=== PATIENT | male | born 1950 | race Two or more races ===

== ENCOUNTER 2017-11-29 18:10 | Inpatient (IN) | payer MEDICARE, BC ==
[~2017-11-29] VITALS: Ht 162.6 cm; Wt 77.2 kg
[2017-11-29] MEDS ORDERED: IBUPROFEN 200 MG TABLET PO ONE (19:00)
[2017-11-29 19:16] LABS: MEAN CORPUSCULAR HEMOGLOBIN 30.6 pg (27.5-34.5); MEAN CORPUSCULAR HGB CONC 33.4 g/dL (33.2-36.2); MEAN CORPUSCULAR VOLUME 91.4 fL (81-97); MEAN PLATELET VOLUME 7.7 fL (7.4-10.4); PLATELET COUNT 319 x10^3/uL (130-400); RED BLOOD COUNT 4.42 x10^6/uL (4.38-5.82); RED CELL DISTRIBUTION WIDTH 14.2 % (9.4-14.8)
[2017-11-29 19:23] LABS: ALBUMIN 3.5 g/dL (3.4-5.0); ANION GAP 9 mmol/L (5-15); CALCIUM 9.2 mg/dL (8.5-10.1); CHLORIDE 103 mmol/L (98-107)
[2017-11-29 19:24] LABS: RAPID INFLUENZA A Negative (Negative); RAPID INFLUENZA B Negative (Negative)
[2017-11-29 20:00] LABS: MD YES
[2017-11-29 20:02] LABS: BAND#(MANUAL) 0.55 x10^3/uL; BANDS%(MANUAL) 3 % (0-7); LYMPH#(MANUAL) 2.39 x10^3/uL (1-3.4); LYMPHS% (MANUAL) 13 % (22-44); MONOS#(MANUAL) 1.47 x10^3/uL (0.3-2.7); MONOS% (MANUAL) 8 % (2-9); SEG#(MANUAL) 13.98 x10^3/uL (1.8-6.8); SEGS% (MANUAL) 76 % (42-75)
[2017-11-29 20:03] LABS: <PLATELET ESTIMATE> ADEQUATE; <RBC MORPHOLOGY> NORMAL
[2017-11-29 20:04] LABS: <PLT MORPHOLOGY> NORMAL PLT MORPH
[2017-11-29] MEDS ORDERED: IBUPROFEN 200 MG TABLET ONE (21:20)
[2017-11-29 21:43] LABS: MICROSCOPIC AUTO
[2017-11-29 21:45] LABS: CULTURE INDICATED? NO
[2017-11-29] MEDS ORDERED: SODIUM CHLORIDE 0.9% 1,000 ML IV ONE (21:53)
[2017-11-29] MEDS ORDERED: CEFTRIAXONE PMX 1GM/50ML 50 ML IV ONE (22:00)
[2017-11-29] MEDS ORDERED: SODIUM CHLORIDE 0.9% 1,000ML IVBOLUS ONE (22:00)
[2017-11-29] MEDS ORDERED: AZITHROMYCIN 500 MG in SODIUM CHLORIDE 0.9% 250 ML IV ONE (22:00)
[2017-11-29] MEDS ORDERED: SODIUM CHLORIDE FLUSH 10ML SYR IVF ONE (22:00)
[2017-11-29] MEDS ORDERED: CEFTRIAXONE PMX 1GM/50ML 50 ML ONE (23:03)
[2017-11-29] MEDS ORDERED: METF500T4 PO (23:16)
[2017-11-29] MEDS ORDERED: AMLO5TAB2 PO (23:16)
[2017-11-29] MEDS ORDERED: SIMV20TA3 PO (23:16)
[2017-11-29] MEDS ORDERED: ACETAMINOPHEN 325 MG TABLET PO PRN (23:30)
[2017-11-29] MEDS ORDERED: ONDANSETRON 2MG/ML, 2ML IVPush PRN (23:30)
[2017-11-29] MEDS ORDERED: GLUCAGON 1 MG IM PRN (23:30)
[2017-11-29] MEDS ORDERED: DOCUSATE 100 MG CAPSULE PO PRN (23:30)
[2017-11-29] MEDS ORDERED: BISACODYL 10 MG SUPP PR PRN (23:30)
[2017-11-29] MEDS ORDERED: LABETALOL 5MG/ML, 20ML IVPush PRN (23:30)
[2017-11-29] MEDS ORDERED: POLYETHYLENE GLYCOL 17 GM PACKET PO PRN (23:30)
[2017-11-29] MEDS ORDERED: DEXTROSE 50%, 50ML SYRINGE IVPush PRN (23:30)
[2017-11-29] MEDS ORDERED: DEXTROSE 4 GM TAB.CHEW PO PRN (23:30)
[2017-11-29] MEDS ORDERED: CEFTRIAXONE PMX 1GM/50ML 50 ML IV SCH (23:30)
[2017-11-30 00:23] VITALS: BP 111/62
[2017-11-30] MEDS: NS + 20MEQ KCL 1,000 ML IV SCH ×3 (00:57→21:48)
[2017-11-30] MEDS: ENOXAPARIN 40 MG/0.4 ML SQ SCH ×2 (00:57→23:41)
[2017-11-30] MEDS: methylPREDNISolone SOD SUCC 125 MG/2 ML IVPush SCH ×4 (00:57→21:05)
[2017-11-30] MEDS: DOXYCYCLINE 100 MG in DEXTROSE 5% 250 ML IV SCH ×3 (00:57→22:02)
[2017-11-30 01:06] VITALS: BP 111/62
[2017-11-30 05:20] LABS: ANION GAP 6 mmol/L (5-15); CHLORIDE 107 mmol/L (98-107)
[2017-11-30 05:22] LABS: MEAN CORPUSCULAR HEMOGLOBIN 30.8 pg (27.5-34.5); MEAN CORPUSCULAR HGB CONC 33.5 g/dL (33.2-36.2); MEAN CORPUSCULAR VOLUME 92.2 fL (81-97); MEAN PLATELET VOLUME 8.1 fL (7.4-10.4); PLATELET COUNT 297 x10^3/uL (130-400); RED BLOOD COUNT 4.41 x10^6/uL (4.38-5.82); RED CELL DISTRIBUTION WIDTH 14.1 % (9.4-14.8)
[2017-11-30 05:23] LABS: CREATININE 0.81 mg/dL (0.7-1.3)
[2017-11-30 06:11] LABS: MD YES
[2017-11-30 06:13] LABS: BAND#(MANUAL) 1.53 x10^3/uL; BANDS%(MANUAL) 8 % (0-7); LYMPH#(MANUAL) 0.57 x10^3/uL (1-3.4); LYMPHS% (MANUAL) 3 % (22-44); MONOS#(MANUAL) 0.57 x10^3/uL (0.3-2.7); MONOS% (MANUAL) 3 % (2-9); SEG#(MANUAL) 16.43 x10^3/uL (1.8-6.8); SEGS% (MANUAL) 86 % (42-75)
[2017-11-30 06:14] LABS: <PLATELET ESTIMATE> ADEQUATE
[2017-11-30 06:16] LABS: LARGE PLATELETS 1+; POLYCHROMASIA 1+
[2017-11-30 07:52] VITALS: BP 121/69
[2017-11-30] MEDS: GUAIFENESIN ER 600 MG TABLET PO SCH ×2 (08:42→21:06)
[2017-11-30] MEDS: AMLODIPINE 5 MG TABLET PO SCH (08:42)
[2017-11-30] MEDS: SODIUM CHLORIDE FLUSH 10ML SYR IVF SCH ×2 (08:42→21:08)
[2017-11-30] MEDS: metFORMIN 500 MG TABLET PO SCH ×2 (08:42→21:07)
[2017-11-30] MEDS: INSULIN ASPART 100 UNITS/ML, PEN SQ-INSULIN SCH ×4 (08:50→21:07)
[2017-11-30 13:45] VITALS: BP 130/66
[2017-11-30 19:51] VITALS: BP 156/85
[2017-11-30] MEDS ORDERED: SIMVASTATIN 20 MG TABLET PO SCH (21:00)
[2017-11-30] MEDS ORDERED: CEFTRIAXONE 1,000 MG in DEXTROSE 5% 50 ML IV SCH (23:30)
[2017-12-01] MEDS: methylPREDNISolone SOD SUCC 125 MG/2 ML IVPush SCH ×2 (02:07→09:17)
[2017-12-01 02:43] VITALS: BP 126/68
[2017-12-01 05:43] LABS: BASOPHILS # (AUTO) 0.02 x10^3/uL (0-0.1); BASOPHILS % (AUTO) 0 % (0-1); EOSINOPHILS % (AUTO) 0 % (1-7); LYMPHOCYTES # (AUTO) 1.07 x10^3/uL (1-3.4); LYMPHOCYTES % (AUTO) 6 % (22-44); MD NO; MEAN CORPUSCULAR HEMOGLOBIN 30.6 pg (27.5-34.5); MEAN CORPUSCULAR HGB CONC 33.3 g/dL (33.2-36.2); MEAN CORPUSCULAR VOLUME 92.1 fL (81-97); MEAN PLATELET VOLUME 8.4 fL (7.4-10.4); MONOCYTES # (AUTO) 0.62 x10^3/uL (0.2-0.8); MONOCYTES % (AUTO) 4 % (2-9); NEUTROPHILS # (AUTO) 15.67 x10^3/uL (1.8-6.8); NEUTROPHILS % (AUTO) 90 % (42-75); PLATELET COUNT 280 x10^3/uL (130-400); RED BLOOD COUNT 3.84 x10^6/uL (4.38-5.82); RED CELL DISTRIBUTION WIDTH 13.8 % (9.4-14.8)
[2017-12-01 05:53] LABS: ANION GAP 10 mmol/L (5-15); CALCIUM 8.5 mg/dL (8.5-10.1); CHLORIDE 111 mmol/L (98-107); CREATININE 0.52 mg/dL (0.7-1.3)
[2017-12-01 07:24] VITALS: BP 121/67
[2017-12-01] MEDS: AMLODIPINE 5 MG TABLET PO SCH (09:00)
[2017-12-01] MEDS: metFORMIN 500 MG TABLET PO SCH (09:00)
[2017-12-01] MEDS: INSULIN ASPART 100 UNITS/ML, PEN SQ-INSULIN SCH (09:17)
[2017-12-01] MEDS: GUAIFENESIN ER 600 MG TABLET PO SCH (09:17)
[2017-12-01] MEDS: SODIUM CHLORIDE FLUSH 10ML SYR IVF SCH (09:18)
[2017-12-01] MEDS ORDERED: GUAI600T31 PO (10:17)
[2017-12-01] MEDS ORDERED: ACET325T14 PO (10:17)
[2017-12-01] MEDS ORDERED: PRED20TA PO (10:17)
[2017-12-01] MEDS ORDERED: CEFD300C37 PO (10:17)
[2017-12-01] MEDS ORDERED: DOXY100T PO (10:17)
[2017-12-01] MEDS ORDERED: methylPREDNISolone SOD SUCC 125 MG/2 ML IVPush SCH (21:00)
== END 2017-12-01 11:47 | disposition home or self-care (01) | DRG 871 ==
LOC: ED 22:30 → EDIP 22:35 → 4WST 23:56 → DCLOUNGE 12-01 11:28
PROVIDERS: ADMIT Hospitalist; ATTEND Hospitalist
DX: A41.9 Sepsis, unspecified organism (principal); J15.9 Unspecified bacterial pneumonia; J96.01 Acute respiratory failure with hypoxia; N17.0 Acute kidney failure with tubular necrosis; E87.1 Hypo-osmolality and hyponatremia; D63.8 Anemia in other chronic diseases classified elsewhere; E11.65 Type 2 diabetes mellitus with hyperglycemia; I11.9 Hypertensive heart disease without heart failure; Z79.84 Long term (current) use of oral hypoglycemic drugs
CPT/HCPCS: 36415; 71046; 80048; 81001; 82040; 82962; 83605; 84145; 85025; 87040; 87400; 93005; 96365; J0696; J1650; J1815; J3480; J7060; J2930; J7030

== ENCOUNTER → 2017-12-04 | Outpatient (CLI) | payer MEDICARE, BC ==
[~2017-12-04] MED LIST: ACET325T14 PO; AMLO5TAB2 PO; CEFD300C37 PO; DOXY100T PO; GUAI600T31 PO; METF500T4 PO; PRED20TA PO; SIMV20TA3 PO
[2017-12-04 16:26] LABS: BASOPHILS # (AUTO) 0.04 x10^3/uL (0-0.1); BASOPHILS % (AUTO) 0 % (0-1); EOSINOPHILS # (AUTO) 0.23 x10^3/uL (0-0.4); EOSINOPHILS % (AUTO) 2 % (1-7); LYMPHOCYTES # (AUTO) 2.87 x10^3/uL (1-3.4); LYMPHOCYTES % (AUTO) 26 % (22-44); MD NO; MEAN CORPUSCULAR HEMOGLOBIN 30.8 pg (27.5-34.5); MEAN CORPUSCULAR HGB CONC 33.3 g/dL (33.2-36.2); MEAN CORPUSCULAR VOLUME 92.3 fL (81-97); MEAN PLATELET VOLUME 7.1 fL (7.4-10.4); MONOCYTES # (AUTO) 1.37 x10^3/uL (0.2-0.8); MONOCYTES % (AUTO) 12 % (2-9); NEUTROPHILS # (AUTO) 6.77 x10^3/uL (1.8-6.8); NEUTROPHILS % (AUTO) 60 % (42-75); PLATELET COUNT 429 x10^3/uL (130-400); RED BLOOD COUNT 4.39 x10^6/uL (4.38-5.82); RED CELL DISTRIBUTION WIDTH 13.4 % (9.4-14.8)
== END ==
LOC: LAB 15:56
PROVIDERS: ATTEND Physician Assistant
DX: J18.9 Pneumonia, unspecified organism (principal); D72.829 Elevated white blood cell count, unspecified
CPT/HCPCS: 36415; 85025

== ENCOUNTER 2018-10-15 18:23 | Inpatient (IN) | payer BC, MEDICARE ==
[~2018-10-15] VITALS: Ht 167.6 cm; Wt 79.8 kg
[~2018-10-15 18:23] MED LIST changes: -AMLO5TAB2 PO; +AMLO5TAB7 PO; +METF500T17 PO; -METF500T4 PO
[2018-10-15] MEDS ORDERED: SODIUM CHLORIDE 0.9% 1,000ML IVBOLUS ONE (18:30)
[2018-10-15] MEDS ORDERED: SODIUM CHLORIDE FLUSH 10ML SYR IVF ONE (18:30)
[2018-10-15 18:56] LABS: MEAN CORPUSCULAR HEMOGLOBIN 31.7 pg (27.5-34.5); MEAN CORPUSCULAR HGB CONC 34.1 g/dL (33.2-36.2); PLATELET COUNT 257 x10^3/uL (130-400); RED BLOOD COUNT 4.64 x10^6/uL (4.38-5.82); RED CELL DISTRIBUTION WIDTH 13.1 % (9.4-14.8)
[2018-10-15] MEDS ORDERED: CEFTRIAXONE 1,000 MG in SODIUM CHLORIDE 0.9% 50 ML IVPB ONE (19:00)
[2018-10-15] MEDS ORDERED: AZITHROMYCIN 500 MG in SODIUM CHLORIDE 0.9% 250 ML IVPB ONE (19:00)
[2018-10-15] MEDS ORDERED: PLEASE ENTER HEIGHT AND WEIGHT MC SCH (19:00)
[2018-10-15] MEDS ORDERED: VANCOMYCIN PER PHARMACY MC PRN (19:00)
[2018-10-15 19:02] LABS: ALANINE AMINOTRANSFERASE 30 U/L (12-78); ALBUMIN 4.1 g/dL (3.4-5.0); ANION GAP 9 mmol/L (5-15); CHLORIDE 101 mmol/L (98-107); CREATININE 0.99 mg/dL (0.7-1.3)
[2018-10-15 19:07] LABS: ALKALINE PHOSPHATASE 53 U/L (45-117); BILIRUBIN,TOTAL 1.4 mg/dL (0.2-1.0); TOTAL PROTEIN 8.6 g/dL (6.4-8.2); TROPONIN I < 0.015 ng/mL (0.000-0.045)
[2018-10-15 19:08] LABS: MD YES
[2018-10-15] MEDS ORDERED: CEFTRIAXONE PMX 1GM/50ML 50 ML ONE (19:17)
[2018-10-15] MEDS ORDERED: IBUPROFEN 600 MG TABLET ONE (19:18)
[2018-10-15] MEDS ORDERED: IBUPROFEN 200 MG TABLET PO ONE (19:30)
[2018-10-15] MEDS ORDERED: PHARMACOKINETIC MONITORING MC PRN (19:30)
[2018-10-15] MEDS ORDERED: PHARMACOKINETIC CONSULTATION MC ONE (19:30)
[2018-10-15] MEDS ORDERED: VANCOMYCIN 1,500 MG in SODIUM CHLORIDE 0.9% 250 ML IV ONE (19:30)
[2018-10-15] MEDS ORDERED: FLUT1DIS IH (19:33)
[2018-10-15] MEDS ORDERED: AMLO10TA4 PO (19:33)
[2018-10-15] MEDS ORDERED: PRAV10TA2 PO (19:33)
[2018-10-15] MEDS ORDERED: FLUT1DIS3 INH (19:33)
[2018-10-15] MEDS ORDERED: ASPI-496 PO (19:34)
[2018-10-15 19:37] LABS: BAND#(MANUAL) 1.82 x10^3/uL; BANDS%(MANUAL) 8 % (0-7); BASOS#(MANUAL) 0.23 x10^3/uL (0-0.1); BASOS% (MANUAL) 1 % (0-1); LYMPH#(MANUAL) 2.51 x10^3/uL (1-3.4); LYMPHS% (MANUAL) 11 % (22-44); MONOS#(MANUAL) 1.37 x10^3/uL (0.3-2.7); MONOS% (MANUAL) 6 % (2-9); REACTIVE LYMPHS # (MANUAL) 0.68 x10^3/uL (0-0); REACTIVE LYMPHS % (MANUAL) 3 % (0-0); SEG#(MANUAL) 16.19 x10^3/uL (1.8-6.8); SEGS% (MANUAL) 71 % (42-75)
[2018-10-15 19:38] LABS: <PLATELET ESTIMATE> ADEQUATE; <PLT MORPHOLOGY> NORMAL PLT MORPH; <RBC MORPHOLOGY> NORMAL
[2018-10-15] MEDS ORDERED: hydrALAzine 20 MG/ML, 1ML IVPush PRN (20:00)
[2018-10-15] MEDS ORDERED: ONDANSETRON 2MG/ML, 2ML IVPush PRN (20:00)
[2018-10-15] MEDS ORDERED: POLYETHYLENE GLYCOL 17 GM PACKET PO PRN (20:00)
[2018-10-15] MEDS ORDERED: ACETAMINOPHEN 325 MG TABLET PO PRN (20:00)
[2018-10-15] MEDS ORDERED: ONDANSETRON ODT 4 MG PO PRN (20:00)
[2018-10-15 21:40] VITALS: BP 132/57
[2018-10-15] MEDS ORDERED: ALBUTEROL SULFATE 2.5 MG/3 ML NPPB SCH (22:00)
[2018-10-15] MEDS ORDERED: BUDESONIDE 0.5 MG/2 ML INHA HHN SCH (22:00)
[2018-10-15 22:12] LABS: RAPID INFLUENZA A Negative (Negative); RAPID INFLUENZA B Negative (Negative)
[2018-10-15] MEDS: INSULIN LISPRO 100 UNITS/ML, PEN SQ-INSULIN SCH (22:45)
[2018-10-15] MEDS: SODIUM CHLORIDE 0.9% 1,000 ML IV SCH (22:45)
[2018-10-15] MEDS: LEVOFLOXACIN/PMX 750MG/150ML 150 ML IV SCH (22:46)
[2018-10-15] MEDS: ASPIRIN 81 MG TABLET EC PO SCH (23:43)
[2018-10-15] MEDS: ENOXAPARIN 40 MG/0.4 ML SQ SCH (23:43)
[2018-10-16 02:18] VITALS: BP 138/65
[2018-10-16 04:44] LABS: BASOPHILS # (AUTO) 0.04 x10^3/uL (0-0.1); BASOPHILS % (AUTO) 0 % (0-1); EOSINOPHILS # (AUTO) 0.03 x10^3/uL (0-0.4); EOSINOPHILS % (AUTO) 0 % (1-7); LYMPHOCYTES % (AUTO) 8 % (22-44); MD NO; MEAN CORPUSCULAR HEMOGLOBIN 31.5 pg (27.5-34.5); MEAN CORPUSCULAR VOLUME 92.6 fL (81-97); MONOCYTES # (AUTO) 1.09 x10^3/uL (0.2-0.8); MONOCYTES % (AUTO) 6 % (2-9); NEUTROPHILS # (AUTO) 14.73 x10^3/uL (1.8-6.8); NEUTROPHILS % (AUTO) 85 % (42-75); PLATELET COUNT 242 x10^3/uL (130-400); RED BLOOD COUNT 4.12 x10^6/uL (4.38-5.82); RED CELL DISTRIBUTION WIDTH 13.3 % (9.4-14.8)
[2018-10-16 04:52] LABS: CALCIUM 8.1 mg/dL (8.5-10.1); CHLORIDE 108 mmol/L (98-107)
[2018-10-16 04:56] LABS: ANION GAP 8 mmol/L (5-15); CREATININE 0.75 mg/dL (0.7-1.3)
[2018-10-16] MEDS: SODIUM CHLORIDE 0.9% 1,000 ML IV SCH ×3 (06:34→22:15)
[2018-10-16] MEDS: GUAIFENESIN/DM 200-20MG, 10ML UDC PO PRN ×2 (06:43→20:25)
[2018-10-16] MEDS: INSULIN LISPRO 100 UNITS/ML, PEN SQ-INSULIN SCH ×4 (07:00→20:25)
[2018-10-16 07:51] VITALS: BP 135/67
[2018-10-16] MEDS: BUDESONIDE 0.5 MG/2 ML INHA HHN SCH ×2 (09:00→19:53)
[2018-10-16] MEDS: ALBUTEROL SULFATE 2.5 MG/3 ML NPPB SCH ×2 (09:00→19:53)
[2018-10-16] MEDS: metFORMIN 500 MG TABLET PO SCH (09:49)
[2018-10-16] MEDS: AMLODIPINE 10 MG TAB PO SCH (09:49)
[2018-10-16 12:33] VITALS: BP 156/78
[2018-10-16 20:06] VITALS: BP 154/66
[2018-10-16] MEDS: ASPIRIN 81 MG TABLET EC PO SCH (20:25)
[2018-10-16] MEDS: LEVOFLOXACIN/PMX 750MG/150ML 150 ML IV SCH (22:15)
[2018-10-16] MEDS: ENOXAPARIN 40 MG/0.4 ML SQ SCH (22:19)
[2018-10-17 02:27] VITALS: BP 143/78
[2018-10-17] MEDS: ALBUTEROL SULFATE 2.5 MG/3 ML NPPB SCH ×3 (03:08→14:13)
[2018-10-17 05:46] LABS: BASOPHILS # (AUTO) 0.05 x10^3/uL (0-0.1); BASOPHILS % (AUTO) 0 % (0-1); EOSINOPHILS # (AUTO) 0.05 x10^3/uL (0-0.4); EOSINOPHILS % (AUTO) 1 % (1-7); LYMPHOCYTES # (AUTO) 1.43 x10^3/uL (1-3.4); LYMPHOCYTES % (AUTO) 12 % (22-44); MD NO; MEAN CORPUSCULAR HEMOGLOBIN 31.6 pg (27.5-34.5); MEAN CORPUSCULAR HGB CONC 33.7 g/dL (33.2-36.2); MEAN CORPUSCULAR VOLUME 93.8 fL (81-97); MEAN PLATELET VOLUME 8.2 fL (7.4-10.4); MONOCYTES # (AUTO) 1.27 x10^3/uL (0.2-0.8); MONOCYTES % (AUTO) 11 % (2-9); NEUTROPHILS # (AUTO) 8.93 x10^3/uL (1.8-6.8); NEUTROPHILS % (AUTO) 76 % (42-75); PLATELET COUNT 231 x10^3/uL (130-400); RED CELL DISTRIBUTION WIDTH 13.5 % (9.4-14.8)
[2018-10-17 05:56] LABS: ANION GAP 7 mmol/L (5-15); CHLORIDE 110 mmol/L (98-107)
[2018-10-17 06:02] LABS: CALCIUM 8.5 mg/dL (8.5-10.1); CREATININE 0.66 mg/dL (0.7-1.3)
[2018-10-17] MEDS: GUAIFENESIN/DM 200-20MG, 10ML UDC PO PRN (06:42)
[2018-10-17] MEDS: SODIUM CHLORIDE 0.9% 1,000 ML IV SCH (06:42)
[2018-10-17] MEDS: BUDESONIDE 0.5 MG/2 ML INHA HHN SCH (07:00)
[2018-10-17] MEDS: INSULIN LISPRO 100 UNITS/ML, PEN SQ-INSULIN SCH ×2 (07:00→11:00)
[2018-10-17 07:49] VITALS: BP 135/74
[2018-10-17] MEDS: metFORMIN 500 MG TABLET PO SCH (07:50)
[2018-10-17] MEDS: AMLODIPINE 10 MG TAB PO SCH (07:50)
[2018-10-17] MEDS ORDERED: LACT1CAP24 PO (12:44)
[2018-10-17] MEDS ORDERED: LEVO750T6 PO (12:44)
[2018-10-17 16:20] VITALS: BP 151/86
== END 2018-10-17 16:34 | disposition home or self-care (01) | DRG 871 ==
LOC: ED 19:28 → EDIP 19:31 → 4NOR 21:35 → DCLOUNGE 10-17 16:28
PROVIDERS: ADMIT Hospitalist; ATTEND Hospitalist
DX: A41.9 Sepsis, unspecified organism (principal); J15.9 Unspecified bacterial pneumonia; J96.01 Acute respiratory failure with hypoxia; E87.2 Acidosis; Z87.01 Personal history of pneumonia (recurrent); I10 Essential (primary) hypertension; E78.5 Hyperlipidemia, unspecified; E11.9 Type 2 diabetes mellitus without complications; Z79.2 Long term (current) use of antibiotics; Z79.82 Long term (current) use of aspirin; Z79.899 Other long term (current) drug therapy
CPT/HCPCS: 36415; 71045; 80048; 80053; 82962; 83605; 83735; 83880; 84100; 84145; 84484; 85025; 87040; 87070; 87205; 87400; 93005; 94640; 96365; 96375; 99285; G0378; J0456; J0696; J1650; J1956; J7613; J7626; J7030; J7050

== ENCOUNTER 2019-03-19 09:59 | Inpatient (IN) | payer OTHER, MEDICARE ==
[~2019-03-19] VITALS: Ht 167.6 cm; Wt 83.3 kg
[~2019-03-19 09:59] MED LIST changes: +AMLO-150 PO; +AMLO10TA4 PO; -AMLO5TAB7 PO; +ASPI-496 PO; +FLUT1DIS IH; +FLUT1DIS3 INH; +LACT1CAP24 PO; +LEVO750T6 PO; +PRAV10TA2 PO
--- NOTE | 2019-03-19 11:10 | NUR ---
UPON RETURN FROM XRAY, PULSE OX OBTAINED AND NOTED TO BE 88 PERCENT ON RA. PLACED ON 2 L. PT HAS HAD A COUGH, CONGESTION AND NOT FEELING WELL. PT WAS FOUND TO HAVE LOW OXYGEN SATURATION WHEN HE PRESENTED TO URGENT CARE TODAY AND WAS DIRECTED TO THE HOSPITAL.
[2019-03-19] MEDS ORDERED: ALBU0.63 NEB (11:19)
[2019-03-19 11:22] LABS: ALANINE AMINOTRANSFERASE 37 U/L (12-78); ALBUMIN 3.9 g/dL (3.4-5.0); ANION GAP 7 mmol/L (5-15); CALCIUM 9.8 mg/dL (8.5-10.1); CHLORIDE 101 mmol/L (98-107); CREATININE 0.98 mg/dL (0.7-1.3)
[2019-03-19 11:24] LABS: ALKALINE PHOSPHATASE 98 U/L (45-117); TOTAL PROTEIN 8.9 g/dL (6.4-8.2)
[2019-03-19] MEDS ORDERED: MOEX15TA2 PO (11:24)
[2019-03-19 11:29] LABS: MEAN CORPUSCULAR HEMOGLOBIN 30.6 pg (27.5-34.5); MEAN CORPUSCULAR HGB CONC 33.7 g/dL (33.2-36.2); MEAN CORPUSCULAR VOLUME 90.6 fL (81-97); MEAN PLATELET VOLUME 7.6 fL (7.4-10.4); PLATELET COUNT 425 x10^3/uL (130-400); RED CELL DISTRIBUTION WIDTH 14.4 % (9.4-14.8)
[2019-03-19] MEDS ORDERED: CEFTRIAXONE PMX 1GM/50ML 50 ML IV ONE (11:30)
[2019-03-19] MEDS: AZITHROMYCIN 500 MG in SODIUM CHLORIDE 0.9% 250 ML IV ONE ×2 (11:30→12:45)
[2019-03-19] MEDS ORDERED: CEFTRIAXONE PMX 1GM/50ML 50 ML ONE (11:31)
--- NOTE | 2019-03-19 11:40 | NUR ---
DAVID RN: ABX STARTED PER JAN, BLOOD CULTURES X2 DRAWN PRIOR TO ADMIN. VS CHECKED, FEVER NOTED OF 101.1, MD NOTIFIED, ORDERS RECEIVED FOR TYLENOL. WILL MEDICATE AND CONTINUE TO MONITOR. CALL LIGHT WITHIN REACH
[2019-03-19] MEDS ORDERED: ACETAMINOPHEN 500 MG TABLET ONE (11:41)
[2019-03-19 11:45] LABS: MD YES
[2019-03-19 11:49] LABS: BAND#(MANUAL) 3.11 x10^3/uL; BANDS%(MANUAL) 15 % (0-7); BASOS#(MANUAL) 0.21 x10^3/uL (0-0.1); BASOS% (MANUAL) 1 % (0-1); LYMPH#(MANUAL) 1.04 x10^3/uL (1-3.4); LYMPHS% (MANUAL) 5 % (22-44); MONOS#(MANUAL) 1.04 x10^3/uL (0.3-2.7); MONOS% (MANUAL) 5 % (2-9); SEG#(MANUAL) 15.32 x10^3/uL (1.8-6.8); SEGS% (MANUAL) 74 % (42-75)
[2019-03-19 11:50] LABS: <PLATELET ESTIMATE> INCREASED; <RBC MORPHOLOGY> NORMAL; LARGE PLATELETS 1+; PMNS WITH VACUOLES 1+
[2019-03-19] MEDS ORDERED: ACETAMINOPHEN 325 MG TABLET PO ONE (12:00)
--- NOTE | 2019-03-19 13:06 | NUR ---
HOSPITALIST AT BEDSIDE
[2019-03-19] MEDS ORDERED: LABETALOL 20 MG/4 ML IVPush PRN (14:00)
[2019-03-19] MEDS ORDERED: SODIUM CHLORIDE 0.9% 1,000 ML IV SCH (14:00)
[2019-03-19] MEDS ORDERED: ONDANSETRON 2MG/ML, 2ML IVPush PRN (14:00)
[2019-03-19] MEDS ORDERED: ACETAMINOPHEN 325 MG TABLET PO PRN (14:00)
[2019-03-19] MEDS ORDERED: ALBUTEROL/IPRATROPIUM 2.5MG/0.5MG, 3 ML HHN SCH (14:00)
[2019-03-19] MEDS ORDERED: hydrALAzine 20 MG/ML, 1ML IVPush PRN (14:00)
[2019-03-19] MEDS ORDERED: methylPREDNISolone SOD SUCC 125 MG/2 ML ONE (14:02)
[2019-03-19] MEDS ORDERED: ENOXAPARIN 40 MG/0.4 ML ONE (14:02)
[2019-03-19] MEDS: methylPREDNISolone SOD SUCC 125 MG/2 ML IVPush SCH ×2 (14:04→21:12)
[2019-03-19] MEDS: ENOXAPARIN 40 MG/0.4 ML SQ SCH (14:04)
[2019-03-19 14:49] VITALS: BP 139/73
[2019-03-19] MEDS: SODIUM CHLORIDE 0.9% 1,000 ML IV SCH ×3 (14:56→16:56)
[2019-03-19 14:57] VITALS: BP 139/73
[2019-03-19] MEDS: AZITHROMYCIN 500 MG in SODIUM CHLORIDE 0.9% 250 ML IV SCH (15:00)
[2019-03-19] MEDS ORDERED: ALBUTEROL SULFATE 2.5 MG/3 ML NPPB PRN (15:00)
[2019-03-19] MEDS: INSULIN LISPRO 100 UNITS/ML, PEN SQ-INSULIN SCH ×2 (16:00→21:13)
[2019-03-19] MEDS: GUAIFENESIN 200 MG TABLET PO SCH ×2 (16:34→21:12)
[2019-03-19 18:17] LABS: HEMOGLOBIN A1C 6.2 % (4.2-6.3)
[2019-03-19 18:49] VITALS: BP 143/73
[2019-03-19 19:35] LABS: RAPID INFLUENZA A Negative (Negative); RAPID INFLUENZA B Negative (Negative)
[2019-03-19] MEDS: ALBUTEROL SULFATE 2.5 MG/3 ML NEB SCH (20:41)
[2019-03-19] MEDS: BUDESONIDE 0.5 MG/2 ML INHA NPPB SCH (20:41)
[2019-03-19] MEDS: PRAVASTATIN 20 MG TABLET PO SCH (21:12)
[2019-03-19] MEDS: ASPIRIN 81 MG TABLET EC PO SCH (21:12)
[2019-03-20 01:45] VITALS: BP 145/75
[2019-03-20] MEDS: methylPREDNISolone SOD SUCC 125 MG/2 ML IVPush SCH (02:57)
[2019-03-20] MEDS: GUAIFENESIN 200 MG TABLET PO SCH ×4 (05:26→20:41)
[2019-03-20] MEDS: SODIUM CHLORIDE 0.9% 1,000 ML IV SCH ×2 (05:27→20:41)
[2019-03-20 05:36] LABS: MEAN CORPUSCULAR HEMOGLOBIN 30.7 pg (27.5-34.5); MEAN CORPUSCULAR HGB CONC 33.7 g/dL (33.2-36.2); MEAN CORPUSCULAR VOLUME 91.2 fL (81-97); MEAN PLATELET VOLUME 7.6 fL (7.4-10.4); PLATELET COUNT 388 x10^3/uL (130-400); RED BLOOD COUNT 4.18 x10^6/uL (4.38-5.82); RED CELL DISTRIBUTION WIDTH 14.1 % (9.4-14.8)
[2019-03-20 05:50] LABS: ALANINE AMINOTRANSFERASE 28 U/L (12-78); ALBUMIN 2.9 g/dL (3.4-5.0); ANION GAP 5 mmol/L (5-15); CALCIUM 8.8 mg/dL (8.5-10.1); CHLORIDE 108 mmol/L (98-107)
[2019-03-20 05:52] LABS: ALKALINE PHOSPHATASE 78 U/L (45-117); BILIRUBIN,TOTAL 0.8 mg/dL (0.2-1.0); TOTAL PROTEIN 7.4 g/dL (6.4-8.2)
[2019-03-20 06:38] LABS: MD YES
[2019-03-20 06:40] LABS: <PLATELET ESTIMATE> ADEQUATE; <PLT MORPHOLOGY> NORMAL PLT MORPH; <RBC MORPHOLOGY> NORMAL; BAND#(MANUAL) 1.47 x10^3/uL; BANDS%(MANUAL) 8 % (0-7); LYMPH#(MANUAL) 1.66 x10^3/uL (1-3.4); LYMPHS% (MANUAL) 9 % (22-44); MONOS#(MANUAL) 0.37 x10^3/uL (0.3-2.7); MONOS% (MANUAL) 2 % (2-9); SEGS% (MANUAL) 81 % (42-75)
[2019-03-20 07:41] VITALS: BP 157/80
[2019-03-20] MEDS: ALBUTEROL SULFATE 2.5 MG/3 ML NEB SCH ×2 (07:45→19:57)
[2019-03-20] MEDS: BUDESONIDE 0.5 MG/2 ML INHA NPPB SCH ×2 (07:45→19:57)
[2019-03-20] MEDS: LISINOPRIL 20 MG TABLET PO SCH (09:00)
[2019-03-20] MEDS: INSULIN LISPRO 100 UNITS/ML, PEN SQ-INSULIN SCH ×4 (09:05→20:41)
[2019-03-20] MEDS: AMLODIPINE 10 MG TAB PO SCH (09:05)
[2019-03-20] MEDS: CEFTRIAXONE PMX 1GM/50ML 50 ML IV SCH (12:44)
[2019-03-20 13:48] VITALS: BP 139/55
[2019-03-20] MEDS ORDERED: methylPREDNISolone SOD SUCC 125 MG/2 ML IVPush SCH (15:00)
[2019-03-20] MEDS: ENOXAPARIN 40 MG/0.4 ML SQ SCH (16:05)
[2019-03-20] MEDS: AZITHROMYCIN 500 MG in SODIUM CHLORIDE 0.9% 250 ML IV SCH (16:05)
[2019-03-20 20:28] VITALS: BP 143/67
[2019-03-20] MEDS: PRAVASTATIN 20 MG TABLET PO SCH (20:41)
[2019-03-20] MEDS: ASPIRIN 81 MG TABLET EC PO SCH (20:41)
[2019-03-21 01:24] VITALS: BP 146/74
[2019-03-21] MEDS: GUAIFENESIN 200 MG TABLET PO SCH ×4 (05:08→21:44)
[2019-03-21 05:54] LABS: MEAN CORPUSCULAR HEMOGLOBIN 30.6 pg (27.5-34.5); MEAN CORPUSCULAR HGB CONC 33.1 g/dL (33.2-36.2); MEAN CORPUSCULAR VOLUME 92.5 fL (81-97); MEAN PLATELET VOLUME 7.9 fL (7.4-10.4); PLATELET COUNT 378 x10^3/uL (130-400); RED BLOOD COUNT 3.77 x10^6/uL (4.38-5.82); RED CELL DISTRIBUTION WIDTH 14.4 % (9.4-14.8)
[2019-03-21 06:16] LABS: BASOPHILS # (AUTO) 0.01 x10^3/uL (0-0.1); BASOPHILS % (AUTO) 0 % (0-1); EOSINOPHILS % (AUTO) 0 % (1-7); LYMPHOCYTES # (AUTO) 1.45 x10^3/uL (1-3.4); LYMPHOCYTES % (AUTO) 8 % (22-44); MONOCYTES # (AUTO) 1.54 x10^3/uL (0.2-0.8); MONOCYTES % (AUTO) 8 % (2-9); NEUTROPHILS # (AUTO) 16.03 x10^3/uL (1.8-6.8); NEUTROPHILS % (AUTO) 84 % (42-75)
[2019-03-21 06:17] LABS: MD SCAN
[2019-03-21] MEDS: INSULIN LISPRO 100 UNITS/ML, PEN SQ-INSULIN SCH ×4 (07:00→21:44)
[2019-03-21 07:50] VITALS: BP 145/76
[2019-03-21] MEDS: AMLODIPINE 10 MG TAB PO SCH (08:39)
[2019-03-21] MEDS: LISINOPRIL 20 MG TABLET PO SCH (08:40)
[2019-03-21] MEDS: ENOXAPARIN 40 MG/0.4 ML SQ SCH (08:41)
[2019-03-21] MEDS: BUDESONIDE 0.5 MG/2 ML INHA NPPB SCH ×2 (09:00→20:46)
[2019-03-21] MEDS: ALBUTEROL SULFATE 2.5 MG/3 ML NEB SCH ×2 (09:00→20:46)
[2019-03-21] MEDS: CEFTRIAXONE PMX 1GM/50ML 50 ML IV SCH (11:43)
[2019-03-21 14:27] VITALS: BP 102/64
[2019-03-21] MEDS: AZITHROMYCIN 500 MG in SODIUM CHLORIDE 0.9% 250 ML IV SCH (15:08)
[2019-03-21 19:09] VITALS: BP 160/88
[2019-03-21] MEDS: ASPIRIN 81 MG TABLET EC PO SCH (21:41)
[2019-03-21] MEDS: PRAVASTATIN 20 MG TABLET PO SCH (21:44)
[2019-03-22 02:24] VITALS: BP 152/86
[2019-03-22] MEDS: GUAIFENESIN 200 MG TABLET PO SCH (06:00)
[2019-03-22 06:45] LABS: MEAN CORPUSCULAR HEMOGLOBIN 30.2 pg (27.5-34.5); MEAN CORPUSCULAR VOLUME 91.5 fL (81-97); MEAN PLATELET VOLUME 7.8 fL (7.4-10.4); PLATELET COUNT 443 x10^3/uL (130-400); RED BLOOD COUNT 4.07 x10^6/uL (4.38-5.82); RED CELL DISTRIBUTION WIDTH 14.5 % (9.4-14.8)
[2019-03-22] MEDS: INSULIN LISPRO 100 UNITS/ML, PEN SQ-INSULIN SCH (07:00)
[2019-03-22 07:01] LABS: BASOPHILS # (AUTO) 0.02 x10^3/uL (0-0.1); BASOPHILS % (AUTO) 0 % (0-1); EOSINOPHILS # (AUTO) 0.01 x10^3/uL (0-0.4); EOSINOPHILS % (AUTO) 0 % (1-7); LYMPHOCYTES # (AUTO) 2.26 x10^3/uL (1-3.4); LYMPHOCYTES % (AUTO) 23 % (22-44); MD SCAN; MONOCYTES % (AUTO) 13 % (2-9); NEUTROPHILS # (AUTO) 6.44 x10^3/uL (1.8-6.8); NEUTROPHILS % (AUTO) 64 % (42-75)
[2019-03-22] MEDS: AMLODIPINE 10 MG TAB PO SCH (07:42)
[2019-03-22] MEDS: LISINOPRIL 20 MG TABLET PO SCH (07:42)
[2019-03-22 08:00] VITALS: BP 115/74
[2019-03-22] MEDS: BUDESONIDE 0.5 MG/2 ML INHA NPPB SCH (08:15)
[2019-03-22] MEDS: ALBUTEROL SULFATE 2.5 MG/3 ML NEB SCH (08:15)
[2019-03-22] MEDS ORDERED: GUAI200T3 PO (10:28)
[2019-03-22] MEDS ORDERED: AMOX1TAB64 PO (10:28)
[2019-03-22] MEDS ORDERED: DOXY100T9 PO (10:28)
== END 2019-03-22 11:39 | disposition home or self-care (01) | DRG 871 ==
LOC: ED 11:39 → EDIP 11:40 → ED 12:27 → 3NE 14:49 → DCLOUNGE 03-22 11:26
PROVIDERS: ADMIT Internal Medicine; ATTEND Internal Medicine
DX: A41.9 Sepsis, unspecified organism (principal); J96.01 Acute respiratory failure with hypoxia; J15.9 Unspecified bacterial pneumonia; J45.901 Unspecified asthma with (acute) exacerbation; E87.1 Hypo-osmolality and hyponatremia; E11.65 Type 2 diabetes mellitus with hyperglycemia; E78.5 Hyperlipidemia, unspecified; E86.1 Hypovolemia; I10 Essential (primary) hypertension; Z51.5 Encounter for palliative care; Z87.01 Personal history of pneumonia (recurrent)
CPT/HCPCS: 36415; 84145; 87400; 99285; J7613; J7626; 71046; 80053; 82962; 83036; 83605; 85025; 87040; 87070; 87205; 93005; 94640; 96365; 96367; G0378; J0456; J0696; J1650; J1815; J2930; J7030; J7050; J7512

== ENCOUNTER 2020-11-19 12:27 | Inpatient (IN) | payer OTHER, MEDICARE ==
[~2020-11-19] VITALS: Ht 165.1 cm; Wt 86.5 kg
[~2020-11-19 12:27] MED LIST changes: +ALBU0.63 NEB; +AMOX1TAB64 PO; +DOXY-162 PO; +GUAI200T37 PO; +MOEX15TA2 PO; +SIMV20TA19 PO; -SIMV20TA3 PO
--- NOTE | 2020-11-19 13:34 | NUR ---
PT TAKEN OFF OF NON REBREATHER AND PLACED ON OXY MASK AT 10 LPM.
[2020-11-19 13:56] LABS: BASOPHILS % (AUTO) 1 % (0-1); EOSINOPHILS % (AUTO) 0 % (1-7); LYMPHOCYTES % (AUTO) 7 % (22-44); MEAN CORPUSCULAR HEMOGLOBIN 31.7 pg (27.5-34.5); MEAN CORPUSCULAR HGB CONC 33.8 g/dL (33.2-36.2); MEAN PLATELET VOLUME 8.2 fL (7.4-10.4); MONOCYTES % (AUTO) 11 % (2-9); NEUTROPHILS % (AUTO) 81 % (42-75); PLATELET COUNT 261 x10^3/uL (130-400); RED CELL DISTRIBUTION WIDTH 13.3 % (9.4-14.8)
[2020-11-19] MEDS ORDERED: ACETAMINOPHEN 500 MG TABLET PO ONE (14:00)
[2020-11-19] MEDS ORDERED: DOXYCYCLINE 100MG TABLET PO ONE (14:00)
[2020-11-19] MEDS ORDERED: DEXAMETHASONE 4 MG/ML, 1ML IV ONE (14:00)
[2020-11-19] MEDS ORDERED: CEFTRIAXONE PMX 1GM/50ML 50 ML IVPB ONE (14:00)
[2020-11-19 14:01] LABS: MD NO
[2020-11-19 14:06] LABS: ALANINE AMINOTRANSFERASE 96 U/L (12-78); ANION GAP 6 mmol/L (5-15); CALCIUM 8.7 mg/dL (8.5-10.1); CHLORIDE 102 mmol/L (98-107)
[2020-11-19] MEDS ORDERED: ACETAMINOPHEN 500 MG TABLET ONE (14:07)
[2020-11-19] MEDS ORDERED: DEXAMETHASONE 4 MG/ML, 1ML ONE (14:08)
[2020-11-19] MEDS ORDERED: CEFTRIAXONE PMX 1GM/50ML 50 ML ONE (14:08)
[2020-11-19 14:11] LABS: D-DIMER (DIC) 0.82 ug/mlFEU (0.00-0.52)
[2020-11-19 14:13] LABS: ALKALINE PHOSPHATASE 122 U/L (45-117); BILIRUBIN,TOTAL 0.9 mg/dL (0.2-1.0); TOTAL PROTEIN 7.4 g/dL (6.4-8.2)
[2020-11-19] MEDS ORDERED: SODIUM CHLORIDE FLUSH 10ML SYR IVF PRN (14:30)
[2020-11-19] MEDS ORDERED: ENOXAPARIN 60 MG/0.6 ML ONE (14:50)
[2020-11-19] MEDS ORDERED: DOXYCYCLINE 100MG TABLET ONE (14:50)
--- NOTE | 2020-11-19 14:56 | NUR ---
BREAK RN: PATIENT MEDICATED PER eMAR, REMDESIVIR REQUESTED FROM PHARMACY, JAKE, PATIENT CONNECTED TO SYSTEM SPECIALIST, SITTING IN GURNEY WATCHING TV. CALL LIGHT WITHIN REACH.
[2020-11-19] MEDS ORDERED: POLYETHYLENE GLYCOL 17 GM PACKET PO PRN (15:00)
[2020-11-19] MEDS ORDERED: ACETAMINOPHEN 325 MG TABLET PO PRN (15:00)
[2020-11-19] MEDS ORDERED: ENOXAPARIN 40 MG/0.4 ML SQ SCH (15:00)
[2020-11-19] MEDS ORDERED: ONDANSETRON ODT 4 MG PO PRN (15:00)
[2020-11-19] MEDS ORDERED: REMDESIVIR 200 MG in SODIUM CHLORIDE 0.9% 250 ML IVPB ONE (15:00)
[2020-11-19] MEDS ORDERED: BISACODYL 10 MG SUPP PR PRN (15:00)
--- NOTE | 2020-11-19 15:47 | NUR ---
HOSPITAL BED REQUESTED FROM HOUSE[facility]EEP[facility]
--- NOTE | 2020-11-19 16:04 | NUR ---
pt rescue inhaler left at bedside with spacer device
[2020-11-19] MEDS: INSULIN LISPRO 100 UNITS/ML, PEN SQ-INSULIN SCH ×2 (17:01→21:11)
[2020-11-19] MEDS ORDERED: OMNIPAQUE 350 MG/ML, 100ML BOTTLE ONE (17:12)
--- NOTE | 2020-11-19 17:47 | NUR ---
meal tray provided. pt placed on nc at 6 lpm to facilitate eating dinner.
[2020-11-19 20:38] VITALS: BP 152/80
[2020-11-19] MEDS: ASCORBIC ACID 500 MG TABLET PO SCH (20:55)
[2020-11-19] MEDS: ASPIRIN 81 MG TABLET EC PO SCH (20:55)
[2020-11-19] MEDS: MELATONIN 5 MG TABLET PO PRN (20:55)
[2020-11-19] MEDS: DOXYCYCLINE 100MG TABLET PO SCH (20:55)
[2020-11-19] MEDS: TRAZODONE 50MG TABLET PO PRN (20:56)
[2020-11-19] MEDS: GUAIFENESIN ER 600 MG TABLET PO SCH (20:56)
[2020-11-20 00:50] VITALS: BP 133/78
[2020-11-20] MEDS: INSULIN LISPRO 100 UNITS/ML, PEN SQ-INSULIN SCH ×4 (07:00→21:08)
[2020-11-20 07:17] LABS: ALANINE AMINOTRANSFERASE 78 U/L (12-78); ALBUMIN 2.8 g/dL (3.4-5.0); ANION GAP 4 mmol/L (5-15); CALCIUM 9.2 mg/dL (8.5-10.1); CHLORIDE 106 mmol/L (98-107)
[2020-11-20 07:19] LABS: ALKALINE PHOSPHATASE 115 U/L (45-117); BILIRUBIN,TOTAL 0.5 mg/dL (0.2-1.0); CREATININE 0.66 mg/dL (0.7-1.3); TOTAL PROTEIN 7.3 g/dL (6.4-8.2)
[2020-11-20 07:20] LABS: BASOPHILS % (AUTO) 0 % (0-1); EOSINOPHILS % (AUTO) 0 % (1-7); LYMPHOCYTES % (AUTO) 9 % (22-44); MEAN CORPUSCULAR HEMOGLOBIN 31.2 pg (27.5-34.5); MEAN CORPUSCULAR HGB CONC 33.5 g/dL (33.2-36.2); MEAN PLATELET VOLUME 8.6 fL (7.4-10.4); MONOCYTES % (AUTO) 10 % (2-9); NEUTROPHILS % (AUTO) 80 % (42-75); PLATELET COUNT 278 x10^3/uL (130-400); RED BLOOD COUNT 3.99 x10^6/uL (4.38-5.82); RED CELL DISTRIBUTION WIDTH 13.2 % (9.4-14.8)
[2020-11-20 07:22] LABS: MD NO
[2020-11-20] MEDS: CHOLECALCIFEROL 5,000u TAB PO SCH (07:43)
[2020-11-20] MEDS: DOXYCYCLINE 100MG TABLET PO SCH ×2 (07:43→21:08)
[2020-11-20] MEDS: GUAIFENESIN ER 600 MG TABLET PO SCH ×2 (07:43→21:09)
[2020-11-20] MEDS: DEXAMETHASONE 4 MG/ML, 1ML IVPush SCH (07:43)
[2020-11-20] MEDS: ZINC SULFATE 220 MG CAPSULE PO SCH (07:44)
[2020-11-20] MEDS: AMLODIPINE 10 MG TAB PO SCH (07:44)
[2020-11-20] MEDS: LISINOPRIL 20 MG TABLET PO SCH (07:44)
[2020-11-20] MEDS: ASCORBIC ACID 500 MG TABLET PO SCH ×2 (07:44→15:59)
[2020-11-20 07:46] VITALS: BP 131/76
[2020-11-20] MEDS: FLUTICASONE/VILANTEROL 100-25MCG/INH INH SCH (09:30)
[2020-11-20] MEDS ORDERED: REMDESIVIR 100 MG in SODIUM CHLORIDE 0.9% 250 ML IVPB ONE (15:00)
[2020-11-20 15:33] VITALS: BP 129/70
[2020-11-20] MEDS: REMDESIVIR 100 MG in SODIUM CHLORIDE 0.9% 250 ML IVPB SCH (15:59)
[2020-11-20] MEDS: ENOXAPARIN 60 MG/0.6 ML SQ SCH (15:59)
[2020-11-20 19:28] VITALS: BP 120/73
[2020-11-20] MEDS ORDERED: INSULIN GLARGINE 100 UNITS/ML, PEN SQ-INSULIN SCH (21:00)
[2020-11-20] MEDS: ASPIRIN 81 MG TABLET EC PO SCH (21:08)
[2020-11-20] MEDS: MELATONIN 5 MG TABLET PO PRN (21:09)
[2020-11-20] MEDS: TRAZODONE 50MG TABLET PO PRN (21:09)
[2020-11-21 00:21] VITALS: BP 121/72
[2020-11-21 06:22] LABS: ALANINE AMINOTRANSFERASE 58 U/L (12-78); ALBUMIN 2.6 g/dL (3.4-5.0); ANION GAP 7 mmol/L (5-15); CALCIUM 8.5 mg/dL (8.5-10.1); CHLORIDE 111 mmol/L (98-107); CREATININE 0.78 mg/dL (0.7-1.3)
[2020-11-21 06:25] LABS: ALKALINE PHOSPHATASE 96 U/L (45-117); BILIRUBIN,TOTAL 0.4 mg/dL (0.2-1.0); TOTAL PROTEIN 6.8 g/dL (6.4-8.2)
[2020-11-21] MEDS: INSULIN LISPRO 100 UNITS/ML, PEN SQ-INSULIN SCH ×4 (07:00→21:20)
[2020-11-21 08:08] VITALS: BP 132/72
[2020-11-21] MEDS: FLUTICASONE/VILANTEROL 100-25MCG/INH INH SCH (08:46)
[2020-11-21] MEDS: ALBUTEROL HFA 90 MCG/SPRAY INH PRN (08:46)
[2020-11-21] MEDS: AMLODIPINE 10 MG TAB PO SCH (08:48)
[2020-11-21] MEDS: DOXYCYCLINE 100MG TABLET PO SCH ×2 (08:48→21:17)
[2020-11-21] MEDS: ZINC SULFATE 220 MG CAPSULE PO SCH (08:48)
[2020-11-21] MEDS: ASCORBIC ACID 500 MG TABLET PO SCH ×2 (08:48→17:14)
[2020-11-21] MEDS: DEXAMETHASONE 4 MG/ML, 1ML IVPush SCH (08:48)
[2020-11-21] MEDS: LISINOPRIL 20 MG TABLET PO SCH (08:49)
[2020-11-21] MEDS: CHOLECALCIFEROL 5,000u TAB PO SCH (08:49)
[2020-11-21] MEDS: GUAIFENESIN ER 600 MG TABLET PO SCH ×2 (08:50→21:17)
[2020-11-21 12:05] VITALS: BP 132/67
[2020-11-21] MEDS: REMDESIVIR 100 MG in SODIUM CHLORIDE 0.9% 250 ML IVPB SCH (15:25)
[2020-11-21] MEDS: ENOXAPARIN 60 MG/0.6 ML SQ SCH (15:26)
[2020-11-21 18:58] VITALS: BP 152/75
[2020-11-21] MEDS: ASPIRIN 81 MG TABLET EC PO SCH (21:17)
[2020-11-21] MEDS: TRAZODONE 50MG TABLET PO PRN (21:18)
[2020-11-21] MEDS: MELATONIN 5 MG TABLET PO PRN (21:18)
[2020-11-21] MEDS: INSULIN GLARGINE 100 UNITS/ML, PEN SQ-INSULIN SCH (21:21)
[2020-11-22 00:18] VITALS: BP 135/72
[2020-11-22 06:49] LABS: ALANINE AMINOTRANSFERASE 59 U/L (12-78); ALBUMIN 2.8 g/dL (3.4-5.0); ANION GAP 7 mmol/L (5-15); CALCIUM 9.2 mg/dL (8.5-10.1); CHLORIDE 111 mmol/L (98-107); CREATININE 0.73 mg/dL (0.7-1.3)
[2020-11-22 06:58] LABS: ALKALINE PHOSPHATASE 97 U/L (45-117); BILIRUBIN,TOTAL 0.5 mg/dL (0.2-1.0); TOTAL PROTEIN 7.5 g/dL (6.4-8.2)
[2020-11-22] MEDS: INSULIN LISPRO 100 UNITS/ML, PEN SQ-INSULIN SCH ×4 (07:00→20:14)
[2020-11-22 07:21] VITALS: BP 149/73
[2020-11-22] MEDS: FLUTICASONE/VILANTEROL 100-25MCG/INH INH SCH (09:44)
[2020-11-22] MEDS: LISINOPRIL 20 MG TABLET PO SCH (09:44)
[2020-11-22] MEDS: ZINC SULFATE 220 MG CAPSULE PO SCH (09:44)
[2020-11-22] MEDS: AMLODIPINE 10 MG TAB PO SCH (09:44)
[2020-11-22] MEDS: GUAIFENESIN ER 600 MG TABLET PO SCH ×2 (09:44→20:14)
[2020-11-22] MEDS: DEXAMETHASONE 4 MG/ML, 1ML IVPush SCH (09:44)
[2020-11-22] MEDS: CHOLECALCIFEROL 5,000u TAB PO SCH (09:44)
[2020-11-22] MEDS: DOXYCYCLINE 100MG TABLET PO SCH ×2 (09:44→20:13)
[2020-11-22] MEDS: ASCORBIC ACID 500 MG TABLET PO SCH ×2 (09:44→15:54)
[2020-11-22 11:19] VITALS: BP 164/85
[2020-11-22] MEDS: ENOXAPARIN 60 MG/0.6 ML SQ SCH (15:54)
[2020-11-22] MEDS: REMDESIVIR 100 MG in SODIUM CHLORIDE 0.9% 250 ML IVPB SCH (15:54)
[2020-11-22 19:30] VITALS: BP 146/72
[2020-11-22] MEDS: CEFTRIAXONE PMX 1GM/50ML 50 ML IV SCH (20:13)
[2020-11-22] MEDS: ASPIRIN 81 MG TABLET EC PO SCH (20:13)
[2020-11-22] MEDS: INSULIN GLARGINE 100 UNITS/ML, PEN SQ-INSULIN SCH (20:15)
[2020-11-23 01:26] VITALS: BP 138/73
[2020-11-23] MEDS: INSULIN LISPRO 100 UNITS/ML, PEN SQ-INSULIN SCH ×4 (07:00→20:42)
[2020-11-23 07:19] VITALS: BP 143/71
[2020-11-23] MEDS: FLUTICASONE/VILANTEROL 100-25MCG/INH INH SCH (08:38)
[2020-11-23] MEDS: ASCORBIC ACID 500 MG TABLET PO SCH ×2 (08:39→16:17)
[2020-11-23] MEDS: DEXAMETHASONE 4 MG/ML, 1ML IVPush SCH (08:39)
[2020-11-23] MEDS: ZINC SULFATE 220 MG CAPSULE PO SCH (08:39)
[2020-11-23] MEDS: LISINOPRIL 20 MG TABLET PO SCH (08:39)
[2020-11-23] MEDS: AMLODIPINE 10 MG TAB PO SCH (08:39)
[2020-11-23] MEDS: DOXYCYCLINE 100MG TABLET PO SCH ×2 (08:39→20:43)
[2020-11-23] MEDS: GUAIFENESIN ER 600 MG TABLET PO SCH ×2 (08:39→20:43)
[2020-11-23] MEDS: CHOLECALCIFEROL 5,000u TAB PO SCH (08:39)
[2020-11-23 11:57] VITALS: BP 127/63
[2020-11-23] MEDS ORDERED: POTASSIUM CHLORIDE 20 MEQ TAB.ER.PRT PO ONE (15:00)
[2020-11-23] MEDS ORDERED: FUROSEMIDE 20 MG/2 ML IV ONE (15:00)
[2020-11-23] MEDS: ENOXAPARIN 60 MG/0.6 ML SQ SCH (16:17)
[2020-11-23] MEDS: REMDESIVIR 100 MG in SODIUM CHLORIDE 0.9% 250 ML IVPB SCH (16:18)
[2020-11-23 19:30] VITALS: BP 142/72
[2020-11-23] MEDS: INSULIN GLARGINE 100 UNITS/ML, PEN SQ-INSULIN SCH (20:42)
[2020-11-23] MEDS: ASPIRIN 81 MG TABLET EC PO SCH (20:43)
[2020-11-23] MEDS: CEFTRIAXONE PMX 1GM/50ML 50 ML IV SCH (20:43)
[2020-11-23] MEDS: ALBUTEROL HFA 90 MCG/SPRAY INH PRN (20:43)
[2020-11-24 00:08] VITALS: BP 130/72
[2020-11-24 06:26] LABS: BASOPHILS % (AUTO) 0 % (0-1); EOSINOPHILS % (AUTO) 0 % (1-7); LYMPHOCYTES % (AUTO) 12 % (22-44); MEAN CORPUSCULAR HGB CONC 33.3 g/dL (33.2-36.2); MEAN PLATELET VOLUME 8.3 fL (7.4-10.4); MONOCYTES % (AUTO) 13 % (2-9); NEUTROPHILS % (AUTO) 75 % (42-75); PLATELET COUNT 518 x10^3/uL (130-400); RED BLOOD COUNT 4.55 x10^6/uL (4.38-5.82); RED CELL DISTRIBUTION WIDTH 13.5 % (9.4-14.8)
[2020-11-24 06:28] LABS: MD NO
[2020-11-24 06:35] VITALS: BP 147/73
[2020-11-24 06:38] LABS: CALCIUM 9.4 mg/dL (8.5-10.1); CHLORIDE 106 mmol/L (98-107)
[2020-11-24 06:42] LABS: ANION GAP 6 mmol/L (5-15); CREATININE 0.77 mg/dL (0.7-1.3)
[2020-11-24 06:45] LABS: D-DIMER (DIC) 4.05 ug/mlFEU (0.00-0.52); PROTIME 11.4 Seconds (9.6-11.5)
[2020-11-24] MEDS: AMLODIPINE 10 MG TAB PO SCH (09:20)
[2020-11-24] MEDS: INSULIN LISPRO 100 UNITS/ML, PEN SQ-INSULIN SCH ×4 (09:20→20:48)
[2020-11-24] MEDS: LISINOPRIL 20 MG TABLET PO SCH (09:21)
[2020-11-24] MEDS: ZINC SULFATE 220 MG CAPSULE PO SCH (09:21)
[2020-11-24] MEDS: DOXYCYCLINE 100MG TABLET PO SCH ×2 (09:21→20:47)
[2020-11-24] MEDS: DEXAMETHASONE 4 MG/ML, 1ML IVPush SCH (09:21)
[2020-11-24] MEDS: ASCORBIC ACID 500 MG TABLET PO SCH ×2 (09:21→17:27)
[2020-11-24] MEDS: CHOLECALCIFEROL 5,000u TAB PO SCH (09:22)
[2020-11-24] MEDS: FLUTICASONE/VILANTEROL 100-25MCG/INH INH SCH (09:22)
[2020-11-24] MEDS: GUAIFENESIN ER 600 MG TABLET PO SCH ×2 (09:22→20:47)
[2020-11-24 13:42] VITALS: BP 115/64
[2020-11-24] MEDS: ENOXAPARIN 60 MG/0.6 ML SQ SCH (17:27)
[2020-11-24 19:48] VITALS: BP 138/71
[2020-11-24 20:21] VITALS: BP 118/69
[2020-11-24] MEDS: ASPIRIN 81 MG TABLET EC PO SCH (20:47)
[2020-11-24] MEDS: INSULIN GLARGINE 100 UNITS/ML, PEN SQ-INSULIN SCH (20:48)
[2020-11-24] MEDS: CEFTRIAXONE PMX 1GM/50ML 50 ML IV SCH (20:49)
[2020-11-25 01:08] VITALS: BP 133/71
[2020-11-25] MEDS: INSULIN LISPRO 100 UNITS/ML, PEN SQ-INSULIN SCH ×4 (08:00→20:31)
[2020-11-25 08:03] VITALS: BP 136/78
[2020-11-25] MEDS: LISINOPRIL 20 MG TABLET PO SCH (09:53)
[2020-11-25] MEDS: CHOLECALCIFEROL 5,000u TAB PO SCH (09:53)
[2020-11-25] MEDS: DOXYCYCLINE 100MG TABLET PO SCH ×2 (09:53→20:19)
[2020-11-25] MEDS: ZINC SULFATE 220 MG CAPSULE PO SCH (09:53)
[2020-11-25] MEDS: DEXAMETHASONE 4 MG/ML, 1ML IVPush SCH (09:54)
[2020-11-25] MEDS: ASCORBIC ACID 500 MG TABLET PO SCH ×2 (09:54→17:58)
[2020-11-25] MEDS: GUAIFENESIN ER 600 MG TABLET PO SCH ×2 (09:54→20:19)
[2020-11-25] MEDS: AMLODIPINE 10 MG TAB PO SCH (09:54)
[2020-11-25] MEDS: FLUTICASONE/VILANTEROL 100-25MCG/INH INH SCH (09:55)
[2020-11-25] MEDS: ALBUTEROL HFA 90 MCG/SPRAY INH PRN (09:55)
[2020-11-25 13:18] VITALS: BP 118/68
[2020-11-25] MEDS: ENOXAPARIN 60 MG/0.6 ML SQ SCH (17:58)
[2020-11-25 19:41] VITALS: BP 103/61
[2020-11-25] MEDS: ASPIRIN 81 MG TABLET EC PO SCH (20:19)
[2020-11-25] MEDS: CEFTRIAXONE PMX 1GM/50ML 50 ML IV SCH (20:30)
[2020-11-25] MEDS: INSULIN GLARGINE 100 UNITS/ML, PEN SQ-INSULIN SCH (20:31)
[2020-11-26 01:03] VITALS: BP 123/69
[2020-11-26] MEDS: INSULIN LISPRO 100 UNITS/ML, PEN SQ-INSULIN SCH ×4 (07:00→20:59)
[2020-11-26 08:29] VITALS: BP 118/70
[2020-11-26] MEDS: DOXYCYCLINE 100MG TABLET PO SCH ×2 (09:45→20:59)
[2020-11-26] MEDS: CHOLECALCIFEROL 5,000u TAB PO SCH (09:45)
[2020-11-26] MEDS: ZINC SULFATE 220 MG CAPSULE PO SCH (09:45)
[2020-11-26] MEDS: ASCORBIC ACID 500 MG TABLET PO SCH ×2 (09:45→16:36)
[2020-11-26] MEDS: DEXAMETHASONE 4 MG/ML, 1ML IVPush SCH (09:45)
[2020-11-26] MEDS: LISINOPRIL 20 MG TABLET PO SCH (09:45)
[2020-11-26] MEDS: AMLODIPINE 10 MG TAB PO SCH (09:45)
[2020-11-26] MEDS: GUAIFENESIN ER 600 MG TABLET PO SCH ×2 (09:46→20:59)
[2020-11-26] MEDS: FLUTICASONE/VILANTEROL 100-25MCG/INH INH SCH (09:46)
[2020-11-26] MEDS: ALBUTEROL HFA 90 MCG/SPRAY INH PRN (09:49)
[2020-11-26 12:24] VITALS: BP 126/64
[2020-11-26] MEDS: ENOXAPARIN 80 MG/0.8 ML SQ SCH (16:37)
[2020-11-26 19:39] VITALS: BP 127/72
[2020-11-26 20:19] VITALS: BP 112/56
[2020-11-26] MEDS: ASPIRIN 81 MG TABLET EC PO SCH (20:59)
[2020-11-26] MEDS: INSULIN GLARGINE 100 UNITS/ML, PEN SQ-INSULIN SCH (20:59)
[2020-11-26] MEDS: CEFTRIAXONE PMX 1GM/50ML 50 ML IV SCH (21:32)
[2020-11-27 00:42] VITALS: BP 126/62
[2020-11-27] MEDS: ENOXAPARIN 80 MG/0.8 ML SQ SCH ×2 (04:30→16:46)
[2020-11-27 05:48] LABS: BASOPHILS % (AUTO) 0 % (0-1); EOSINOPHILS % (AUTO) 0 % (1-7); LYMPHOCYTES % (AUTO) 9 % (22-44); MEAN CORPUSCULAR HEMOGLOBIN 30.9 pg (27.5-34.5); MEAN CORPUSCULAR HGB CONC 33.2 g/dL (33.2-36.2); MEAN PLATELET VOLUME 7.8 fL (7.4-10.4); MONOCYTES % (AUTO) 12 % (2-9); NEUTROPHILS % (AUTO) 79 % (42-75); PLATELET COUNT 523 x10^3/uL (130-400); RED BLOOD COUNT 4.23 x10^6/uL (4.38-5.82); RED CELL DISTRIBUTION WIDTH 13.6 % (9.4-14.8)
[2020-11-27 05:58] LABS: ALBUMIN 2.2 g/dL (3.4-5.0); CALCIUM 8.6 mg/dL (8.5-10.1); CHLORIDE 106 mmol/L (98-107)
[2020-11-27 06:04] LABS: ALANINE AMINOTRANSFERASE 59 U/L (12-78); ALKALINE PHOSPHATASE 128 U/L (45-117); ANION GAP 4 mmol/L (5-15); BILIRUBIN,TOTAL 0.5 mg/dL (0.2-1.0); CREATININE 0.58 mg/dL (0.7-1.3); TOTAL PROTEIN 6.7 g/dL (6.4-8.2)
[2020-11-27 06:05] LABS: D-DIMER (DIC) 31.86 ug/mlFEU (0.00-0.52)
[2020-11-27 06:23] LABS: MD SCAN
[2020-11-27] MEDS: INSULIN LISPRO 100 UNITS/ML, PEN SQ-INSULIN SCH ×4 (07:00→20:39)
[2020-11-27 07:40] VITALS: BP 131/84
[2020-11-27] MEDS: GUAIFENESIN ER 600 MG TABLET PO SCH ×2 (08:36→20:38)
[2020-11-27] MEDS: ZINC SULFATE 220 MG CAPSULE PO SCH (08:36)
[2020-11-27] MEDS: ASCORBIC ACID 500 MG TABLET PO SCH ×2 (08:36→16:45)
[2020-11-27] MEDS: CHOLECALCIFEROL 5,000u TAB PO SCH (08:37)
[2020-11-27] MEDS: DEXAMETHASONE 4 MG/ML, 1ML IVPush SCH (08:37)
[2020-11-27] MEDS: AMLODIPINE 10 MG TAB PO SCH (08:37)
[2020-11-27] MEDS: LISINOPRIL 20 MG TABLET PO SCH (08:37)
[2020-11-27] MEDS: DOXYCYCLINE 100MG TABLET PO SCH ×2 (08:37→20:38)
[2020-11-27] MEDS: FLUTICASONE/VILANTEROL 100-25MCG/INH INH SCH (08:38)
[2020-11-27] MEDS: ALBUTEROL HFA 90 MCG/SPRAY INH PRN (08:39)
[2020-11-27 13:52] VITALS: BP 138/68
[2020-11-27 19:12] VITALS: BP 132/70
[2020-11-27] MEDS: ASPIRIN 81 MG TABLET EC PO SCH (20:38)
[2020-11-27] MEDS: CEFTRIAXONE PMX 1GM/50ML 50 ML IV SCH (20:39)
[2020-11-27] MEDS: INSULIN GLARGINE 100 UNITS/ML, PEN SQ-INSULIN SCH (20:40)
[2020-11-28 00:49] VITALS: BP 121/71
[2020-11-28] MEDS: ENOXAPARIN 80 MG/0.8 ML SQ SCH ×2 (04:10→17:00)
[2020-11-28 06:08] LABS: BASOPHILS % (AUTO) 1 % (0-1); EOSINOPHILS % (AUTO) 0 % (1-7); LYMPHOCYTES % (AUTO) 10 % (22-44); MEAN PLATELET VOLUME 7.8 fL (7.4-10.4); MONOCYTES % (AUTO) 10 % (2-9); NEUTROPHILS % (AUTO) 79 % (42-75); PLATELET COUNT 496 x10^3/uL (130-400); RED BLOOD COUNT 4.47 x10^6/uL (4.38-5.82); RED CELL DISTRIBUTION WIDTH 13.9 % (9.4-14.8)
[2020-11-28 06:13] LABS: ANION GAP 5 mmol/L (5-15); CALCIUM 8.7 mg/dL (8.5-10.1); CHLORIDE 107 mmol/L (98-107)
[2020-11-28 06:14] LABS: CREATININE 0.62 mg/dL (0.7-1.3)
[2020-11-28 06:43] LABS: MD SCAN
[2020-11-28] MEDS: INSULIN LISPRO 100 UNITS/ML, PEN SQ-INSULIN SCH ×4 (07:00→20:40)
[2020-11-28 07:30] VITALS: BP 120/69
[2020-11-28] MEDS: DOXYCYCLINE 100MG TABLET PO SCH ×2 (08:22→20:41)
[2020-11-28] MEDS: DEXAMETHASONE 4 MG/ML, 1ML IVPush SCH (08:22)
[2020-11-28] MEDS: LISINOPRIL 20 MG TABLET PO SCH (08:23)
[2020-11-28] MEDS: AMLODIPINE 10 MG TAB PO SCH (08:23)
[2020-11-28] MEDS: ASCORBIC ACID 500 MG TABLET PO SCH ×2 (08:23→17:01)
[2020-11-28] MEDS: ZINC SULFATE 220 MG CAPSULE PO SCH (08:23)
[2020-11-28] MEDS: GUAIFENESIN ER 600 MG TABLET PO SCH ×2 (08:23→20:41)
[2020-11-28] MEDS: CHOLECALCIFEROL 5,000u TAB PO SCH (08:23)
[2020-11-28] MEDS: FLUTICASONE/VILANTEROL 100-25MCG/INH INH SCH (08:24)
[2020-11-28] MEDS: ALBUTEROL HFA 90 MCG/SPRAY INH PRN (08:24)
[2020-11-28 13:11] VITALS: BP 116/65
[2020-11-28 20:00] VITALS: BP 122/69
[2020-11-28] MEDS: CEFTRIAXONE PMX 1GM/50ML 50 ML IV SCH (20:38)
[2020-11-28] MEDS: INSULIN GLARGINE 100 UNITS/ML, PEN SQ-INSULIN SCH (20:39)
[2020-11-28] MEDS: ASPIRIN 81 MG TABLET EC PO SCH (20:41)
[2020-11-29 00:43] VITALS: BP 125/66
[2020-11-29] MEDS: ENOXAPARIN 80 MG/0.8 ML SQ SCH ×2 (01:29→14:00)
[2020-11-29 05:42] LABS: BASOPHILS % (AUTO) 0 % (0-1); EOSINOPHILS % (AUTO) 1 % (1-7); LYMPHOCYTES % (AUTO) 7 % (22-44); MEAN CORPUSCULAR HEMOGLOBIN 30.7 pg (27.5-34.5); MEAN CORPUSCULAR HGB CONC 33.3 g/dL (33.2-36.2); MEAN PLATELET VOLUME 7.6 fL (7.4-10.4); MONOCYTES % (AUTO) 7 % (2-9); NEUTROPHILS % (AUTO) 85 % (42-75); PLATELET COUNT 521 x10^3/uL (130-400); RED BLOOD COUNT 4.58 x10^6/uL (4.38-5.82); RED CELL DISTRIBUTION WIDTH 13.5 % (9.4-14.8)
[2020-11-29 05:54] LABS: ANION GAP 6 mmol/L (5-15); CALCIUM 8.7 mg/dL (8.5-10.1); CHLORIDE 104 mmol/L (98-107); CREATININE 0.58 mg/dL (0.7-1.3)
[2020-11-29 06:22] LABS: MD SCAN
[2020-11-29] MEDS: INSULIN LISPRO 100 UNITS/ML, PEN SQ-INSULIN SCH ×4 (07:00→20:54)
[2020-11-29 07:16] VITALS: BP 119/69
[2020-11-29] MEDS: FLUTICASONE/VILANTEROL 100-25MCG/INH INH SCH (08:29)
[2020-11-29] MEDS: ASCORBIC ACID 500 MG TABLET PO SCH ×2 (08:30→16:04)
[2020-11-29] MEDS: DOXYCYCLINE 100MG TABLET PO SCH ×2 (08:30→20:33)
[2020-11-29] MEDS: GUAIFENESIN ER 600 MG TABLET PO SCH ×2 (08:30→20:33)
[2020-11-29] MEDS: CHOLECALCIFEROL 5,000u TAB PO SCH (08:30)
[2020-11-29] MEDS: ZINC SULFATE 220 MG CAPSULE PO SCH (08:30)
[2020-11-29] MEDS: LISINOPRIL 20 MG TABLET PO SCH (08:31)
[2020-11-29] MEDS: AMLODIPINE 10 MG TAB PO SCH (08:31)
[2020-11-29] MEDS: DEXAMETHASONE 4 MG/ML, 1ML IVPush SCH (08:31)
[2020-11-29 12:00] VITALS: BP 100/63
[2020-11-29] MEDS: ASPIRIN 81 MG TABLET EC PO SCH (20:33)
[2020-11-29] MEDS: CEFTRIAXONE PMX 1GM/50ML 50 ML IV SCH (20:33)
[2020-11-29] MEDS: INSULIN GLARGINE 100 UNITS/ML, PEN SQ-INSULIN SCH (20:54)
[2020-11-29 21:21] VITALS: BP 127/73
[2020-11-30 00:28] VITALS: BP 111/59
[2020-11-30] MEDS: ENOXAPARIN 80 MG/0.8 ML SQ SCH ×2 (01:32→16:20)
[2020-11-30 06:14] VITALS: BP 119/67
[2020-11-30 06:14] LABS: BASOPHILS % (AUTO) 0 % (0-1); EOSINOPHILS % (AUTO) 0 % (1-7); LYMPHOCYTES % (AUTO) 9 % (22-44); MEAN CORPUSCULAR HEMOGLOBIN 30.3 pg (27.5-34.5); MEAN CORPUSCULAR HGB CONC 33.1 g/dL (33.2-36.2); MEAN PLATELET VOLUME 7.8 fL (7.4-10.4); MONOCYTES % (AUTO) 9 % (2-9); NEUTROPHILS % (AUTO) 82 % (42-75); PLATELET COUNT 548 x10^3/uL (130-400); RED BLOOD COUNT 4.53 x10^6/uL (4.38-5.82); RED CELL DISTRIBUTION WIDTH 13.3 % (9.4-14.8)
[2020-11-30 06:26] LABS: MD NO
[2020-11-30] MEDS: INSULIN LISPRO 100 UNITS/ML, PEN SQ-INSULIN SCH ×4 (08:43→20:15)
[2020-11-30] MEDS: ZINC SULFATE 220 MG CAPSULE PO SCH (08:44)
[2020-11-30] MEDS: CHOLECALCIFEROL 5,000u TAB PO SCH (08:44)
[2020-11-30] MEDS: GUAIFENESIN ER 600 MG TABLET PO SCH ×2 (08:44→20:16)
[2020-11-30] MEDS: LISINOPRIL 20 MG TABLET PO SCH (08:44)
[2020-11-30] MEDS: ASCORBIC ACID 500 MG TABLET PO SCH ×2 (08:44→16:20)
[2020-11-30] MEDS: FLUTICASONE/VILANTEROL 100-25MCG/INH INH SCH (08:45)
[2020-11-30] MEDS: DOXYCYCLINE 100MG TABLET PO SCH ×2 (08:45→20:16)
[2020-11-30] MEDS: AMLODIPINE 10 MG TAB PO SCH (08:45)
[2020-11-30] MEDS: DEXAMETHASONE 4 MG/ML, 1ML IVPush SCH (08:45)
[2020-11-30 11:40] VITALS: BP 112/62
[2020-11-30 19:45] VITALS: BP 118/65
[2020-11-30] MEDS: CEFTRIAXONE PMX 1GM/50ML 50 ML IV SCH (20:15)
[2020-11-30] MEDS: ASPIRIN 81 MG TABLET EC PO SCH (20:16)
[2020-11-30] MEDS: INSULIN GLARGINE 100 UNITS/ML, PEN SQ-INSULIN SCH (20:16)
[2020-12-01 00:28] VITALS: BP 130/70
[2020-12-01] MEDS: ENOXAPARIN 80 MG/0.8 ML SQ SCH ×2 (01:59→15:26)
[2020-12-01 06:47] VITALS: BP 115/63
[2020-12-01] MEDS: INSULIN LISPRO 100 UNITS/ML, PEN SQ-INSULIN SCH ×4 (07:29→20:33)
[2020-12-01] MEDS: LISINOPRIL 20 MG TABLET PO SCH (09:15)
[2020-12-01] MEDS: GUAIFENESIN ER 600 MG TABLET PO SCH ×2 (09:15→20:33)
[2020-12-01] MEDS: ASCORBIC ACID 500 MG TABLET PO SCH ×2 (09:15→16:58)
[2020-12-01] MEDS: DEXAMETHASONE 4 MG/ML, 1ML IVPush SCH (09:15)
[2020-12-01] MEDS: CHOLECALCIFEROL 5,000u TAB PO SCH (09:15)
[2020-12-01] MEDS: ZINC SULFATE 220 MG CAPSULE PO SCH (09:15)
[2020-12-01] MEDS: DOXYCYCLINE 100MG TABLET PO SCH (09:15)
[2020-12-01] MEDS: AMLODIPINE 10 MG TAB PO SCH (09:15)
[2020-12-01] MEDS: FLUTICASONE/VILANTEROL 100-25MCG/INH INH SCH (09:16)
[2020-12-01 13:46] VITALS: BP 116/66
[2020-12-01] MEDS: ASPIRIN 81 MG TABLET EC PO SCH (20:33)
[2020-12-01] MEDS: INSULIN GLARGINE 100 UNITS/ML, PEN SQ-INSULIN SCH (20:33)
[2020-12-01 20:34] VITALS: BP 122/69
[2020-12-02] MEDS: ENOXAPARIN 80 MG/0.8 ML SQ SCH ×2 (01:16→14:26)
[2020-12-02 01:42] VITALS: BP 117/65
[2020-12-02 05:30] LABS: BASOPHILS % (AUTO) 0 % (0-1); EOSINOPHILS % (AUTO) 0 % (1-7); LYMPHOCYTES % (AUTO) 9 % (22-44); MEAN CORPUSCULAR HEMOGLOBIN 30.4 pg (27.5-34.5); MEAN CORPUSCULAR HGB CONC 32.9 g/dL (33.2-36.2); MEAN PLATELET VOLUME 7.1 fL (7.4-10.4); MONOCYTES % (AUTO) 8 % (2-9); NEUTROPHILS % (AUTO) 83 % (42-75); PLATELET COUNT 550 x10^3/uL (130-400); RED BLOOD COUNT 4.39 x10^6/uL (4.38-5.82); RED CELL DISTRIBUTION WIDTH 13.7 % (9.4-14.8)
[2020-12-02 05:38] LABS: MD NO
[2020-12-02 06:39] VITALS: BP 129/73
[2020-12-02] MEDS: INSULIN LISPRO 100 UNITS/ML, PEN SQ-INSULIN SCH ×4 (07:46→20:45)
[2020-12-02 09:01] LABS: CALCIUM 8.5 mg/dL (8.5-10.1); CHLORIDE 103 mmol/L (98-107); CREATININE 0.61 mg/dL (0.7-1.3)
[2020-12-02 09:08] LABS: ANION GAP 5 mmol/L (5-15)
[2020-12-02] MEDS: DEXAMETHASONE 4 MG/ML, 1ML IVPush SCH (10:17)
[2020-12-02] MEDS: CHOLECALCIFEROL 5,000u TAB PO SCH (10:20)
[2020-12-02] MEDS: GUAIFENESIN ER 600 MG TABLET PO SCH ×2 (10:20→20:42)
[2020-12-02] MEDS: AMLODIPINE 10 MG TAB PO SCH (10:21)
[2020-12-02] MEDS: ASCORBIC ACID 500 MG TABLET PO SCH ×2 (10:21→16:30)
[2020-12-02] MEDS: FLUTICASONE/VILANTEROL 100-25MCG/INH INH SCH (10:21)
[2020-12-02] MEDS: ZINC SULFATE 220 MG CAPSULE PO SCH (10:21)
[2020-12-02] MEDS: LISINOPRIL 20 MG TABLET PO SCH (10:21)
[2020-12-02 13:26] VITALS: BP 117/64
[2020-12-02] MEDS: ALBUTEROL HFA 90 MCG/SPRAY INH PRN (14:28)
[2020-12-02 18:37] VITALS: BP 110/62
[2020-12-02] MEDS: ASPIRIN 81 MG TABLET EC PO SCH (20:42)
[2020-12-02] MEDS: INSULIN GLARGINE 100 UNITS/ML, PEN SQ-INSULIN SCH (20:45)
[2020-12-03 00:24] VITALS: BP 121/68
[2020-12-03] MEDS: ENOXAPARIN 80 MG/0.8 ML SQ SCH ×2 (01:55→14:01)
[2020-12-03 07:44] VITALS: BP 120/62
[2020-12-03] MEDS: INSULIN LISPRO 100 UNITS/ML, PEN SQ-INSULIN SCH ×4 (07:57→21:00)
[2020-12-03] MEDS: ZINC SULFATE 220 MG CAPSULE PO SCH (09:58)
[2020-12-03] MEDS: FLUTICASONE/VILANTEROL 100-25MCG/INH INH SCH (09:58)
[2020-12-03] MEDS: DEXAMETHASONE 4 MG/ML, 1ML IVPush SCH (09:59)
[2020-12-03] MEDS: GUAIFENESIN ER 600 MG TABLET PO SCH ×2 (09:59→20:59)
[2020-12-03] MEDS: CHOLECALCIFEROL 5,000u TAB PO SCH (09:59)
[2020-12-03] MEDS: ASCORBIC ACID 500 MG TABLET PO SCH ×2 (09:59→17:13)
[2020-12-03] MEDS: LISINOPRIL 20 MG TABLET PO SCH (09:59)
[2020-12-03] MEDS: AMLODIPINE 10 MG TAB PO SCH (10:03)
[2020-12-03 12:47] VITALS: BP 104/64
[2020-12-03] MEDS: ALBUTEROL HFA 90 MCG/SPRAY INH PRN (13:55)
[2020-12-03 20:26] VITALS: BP 100/65
[2020-12-03] MEDS: ASPIRIN 81 MG TABLET EC PO SCH (20:59)
[2020-12-03] MEDS: INSULIN GLARGINE 100 UNITS/ML, PEN SQ-INSULIN SCH (21:00)
[2020-12-04 01:02] VITALS: BP 110/64
[2020-12-04] MEDS: ENOXAPARIN 80 MG/0.8 ML SQ SCH ×2 (01:16→14:22)
[2020-12-04 05:57] LABS: CALCIUM 8.3 mg/dL (8.5-10.1); CHLORIDE 103 mmol/L (98-107)
[2020-12-04 06:01] LABS: ANION GAP 4 mmol/L (5-15); BASOPHILS % (AUTO) 0 % (0-1); CREATININE 0.64 mg/dL (0.7-1.3); EOSINOPHILS % (AUTO) 0 % (1-7); LYMPHOCYTES % (AUTO) 11 % (22-44); MEAN CORPUSCULAR HEMOGLOBIN 30.6 pg (27.5-34.5); MEAN CORPUSCULAR HGB CONC 33.2 g/dL (33.2-36.2); MEAN PLATELET VOLUME 7.5 fL (7.4-10.4); MONOCYTES % (AUTO) 11 % (2-9); NEUTROPHILS % (AUTO) 78 % (42-75); PLATELET COUNT 488 x10^3/uL (130-400); RED BLOOD COUNT 3.92 x10^6/uL (4.38-5.82)
[2020-12-04 06:12] LABS: MD NO
[2020-12-04 07:25] VITALS: BP 122/68
[2020-12-04] MEDS: INSULIN LISPRO 100 UNITS/ML, PEN SQ-INSULIN SCH ×4 (07:45→20:19)
[2020-12-04] MEDS: FLUTICASONE/VILANTEROL 100-25MCG/INH INH SCH (09:48)
[2020-12-04] MEDS: GUAIFENESIN ER 600 MG TABLET PO SCH ×2 (09:48→20:15)
[2020-12-04] MEDS: ASCORBIC ACID 500 MG TABLET PO SCH ×2 (09:48→16:47)
[2020-12-04] MEDS: AMLODIPINE 10 MG TAB PO SCH (09:48)
[2020-12-04] MEDS: ZINC SULFATE 220 MG CAPSULE PO SCH (09:48)
[2020-12-04] MEDS: DEXAMETHASONE 4 MG/ML, 1ML IVPush SCH (09:48)
[2020-12-04] MEDS: CHOLECALCIFEROL 5,000u TAB PO SCH (09:49)
[2020-12-04] MEDS: LISINOPRIL 20 MG TABLET PO SCH (09:49)
[2020-12-04 13:12] VITALS: BP 104/57
[2020-12-04 19:33] VITALS: BP 112/63
[2020-12-04] MEDS: ASPIRIN 81 MG TABLET EC PO SCH (20:16)
[2020-12-04] MEDS: INSULIN GLARGINE 100 UNITS/ML, PEN SQ-INSULIN SCH (20:18)
[2020-12-05 01:41] VITALS: BP 142/61
[2020-12-05] MEDS: ENOXAPARIN 80 MG/0.8 ML SQ SCH ×2 (02:04→13:12)
[2020-12-05] MEDS: INSULIN LISPRO 100 UNITS/ML, PEN SQ-INSULIN SCH ×4 (07:21→20:30)
[2020-12-05 07:52] VITALS: BP 128/71
[2020-12-05] MEDS: ZINC SULFATE 220 MG CAPSULE PO SCH (09:00)
[2020-12-05] MEDS: ASCORBIC ACID 500 MG TABLET PO SCH ×2 (09:01→16:43)
[2020-12-05] MEDS: CHOLECALCIFEROL 5,000u TAB PO SCH (09:01)
[2020-12-05] MEDS: AMLODIPINE 10 MG TAB PO SCH (09:01)
[2020-12-05] MEDS: LISINOPRIL 20 MG TABLET PO SCH (09:01)
[2020-12-05] MEDS: FLUTICASONE/VILANTEROL 100-25MCG/INH INH SCH (09:01)
[2020-12-05] MEDS: GUAIFENESIN ER 600 MG TABLET PO SCH ×2 (09:01→20:28)
[2020-12-05] MEDS: DEXAMETHASONE 4 MG/ML, 1ML IVPush SCH (09:01)
[2020-12-05 13:55] VITALS: BP 120/62
[2020-12-05 18:52] VITALS: BP 109/60
[2020-12-05] MEDS: ASPIRIN 81 MG TABLET EC PO SCH (20:28)
[2020-12-05] MEDS: INSULIN GLARGINE 100 UNITS/ML, PEN SQ-INSULIN SCH (20:31)
[2020-12-06 00:08] VITALS: BP 129/63
[2020-12-06] MEDS: ENOXAPARIN 80 MG/0.8 ML SQ SCH ×2 (01:26→13:59)
[2020-12-06 06:13] LABS: ANION GAP 3 mmol/L (5-15); CALCIUM 8.4 mg/dL (8.5-10.1); CHLORIDE 103 mmol/L (98-107); CREATININE 0.56 mg/dL (0.7-1.3)
[2020-12-06 06:16] LABS: D-DIMER (DIC) 1.77 ug/mlFEU (0.00-0.52); PROTIME 9.8 Seconds (9.6-11.5)
[2020-12-06 06:19] LABS: BASOPHILS % (AUTO) 1 % (0-1); EOSINOPHILS % (AUTO) 0 % (1-7); LYMPHOCYTES % (AUTO) 12 % (22-44); MEAN CORPUSCULAR HEMOGLOBIN 30.8 pg (27.5-34.5); MEAN CORPUSCULAR HGB CONC 33.3 g/dL (33.2-36.2); MEAN PLATELET VOLUME 7.2 fL (7.4-10.4); MONOCYTES % (AUTO) 9 % (2-9); NEUTROPHILS % (AUTO) 78 % (42-75); PLATELET COUNT 473 x10^3/uL (130-400); RED BLOOD COUNT 3.82 x10^6/uL (4.38-5.82); RED CELL DISTRIBUTION WIDTH 13.7 % (9.4-14.8)
[2020-12-06 06:29] VITALS: BP 126/70
[2020-12-06 07:26] LABS: MD SCAN
[2020-12-06] MEDS: AMLODIPINE 10 MG TAB PO SCH (09:44)
[2020-12-06] MEDS: CHOLECALCIFEROL 5,000u TAB PO SCH (09:44)
[2020-12-06] MEDS: ASCORBIC ACID 500 MG TABLET PO SCH ×2 (09:44→15:54)
[2020-12-06] MEDS: GUAIFENESIN ER 600 MG TABLET PO SCH ×2 (09:44→21:24)
[2020-12-06] MEDS: ZINC SULFATE 220 MG CAPSULE PO SCH (09:44)
[2020-12-06] MEDS: FLUTICASONE/VILANTEROL 100-25MCG/INH INH SCH (09:45)
[2020-12-06] MEDS: LISINOPRIL 20 MG TABLET PO SCH (09:45)
[2020-12-06] MEDS: DEXAMETHASONE 4 MG/ML, 1ML IVPush SCH (09:45)
[2020-12-06] MEDS: INSULIN LISPRO 100 UNITS/ML, PEN SQ-INSULIN SCH ×4 (09:46→21:23)
[2020-12-06 12:01] VITALS: BP 132/75
[2020-12-06] MEDS: ENOXAPARIN 40 MG/0.4 ML SQ SCH (14:12)
[2020-12-06 20:33] VITALS: BP 113/59
[2020-12-06] MEDS: INSULIN GLARGINE 100 UNITS/ML, PEN SQ-INSULIN SCH (21:22)
[2020-12-06] MEDS: ASPIRIN 81 MG TABLET EC PO SCH (21:23)
[2020-12-07 00:52] VITALS: BP 119/65
[2020-12-07] MEDS: INSULIN LISPRO 100 UNITS/ML, PEN SQ-INSULIN SCH ×4 (07:00→20:23)
[2020-12-07 07:24] VITALS: BP 130/72
[2020-12-07] MEDS: GUAIFENESIN ER 600 MG TABLET PO SCH ×2 (08:24→20:17)
[2020-12-07] MEDS: FLUTICASONE/VILANTEROL 100-25MCG/INH INH SCH (08:25)
[2020-12-07] MEDS: ASCORBIC ACID 500 MG TABLET PO SCH ×2 (08:25→16:12)
[2020-12-07] MEDS: DEXAMETHASONE 4 MG/ML, 1ML IVPush SCH (08:25)
[2020-12-07] MEDS: AMLODIPINE 10 MG TAB PO SCH (08:25)
[2020-12-07] MEDS: CHOLECALCIFEROL 5,000u TAB PO SCH (08:26)
[2020-12-07] MEDS: ZINC SULFATE 220 MG CAPSULE PO SCH (08:26)
[2020-12-07] MEDS: LISINOPRIL 20 MG TABLET PO SCH (08:26)
[2020-12-07 12:11] VITALS: BP 129/72
[2020-12-07] MEDS: ENOXAPARIN 40 MG/0.4 ML SQ SCH (14:30)
[2020-12-07 19:05] VITALS: BP 121/65
[2020-12-07] MEDS: ASPIRIN 81 MG TABLET EC PO SCH (20:17)
[2020-12-07] MEDS ORDERED: INSULIN GLARGINE 100 UNITS/ML, PEN SQ-INSULIN SCH ×2 (21:00)
[2020-12-08 00:44] VITALS: BP 13/66
[2020-12-08] MEDS: INSULIN LISPRO 100 UNITS/ML, PEN SQ-INSULIN SCH ×2 (07:00→11:00)
[2020-12-08 07:19] VITALS: BP 144/72
[2020-12-08] MEDS: GUAIFENESIN ER 600 MG TABLET PO SCH (08:27)
[2020-12-08] MEDS: DEXAMETHASONE 4 MG/ML, 1ML IVPush SCH (08:27)
[2020-12-08] MEDS: FLUTICASONE/VILANTEROL 100-25MCG/INH INH SCH (08:27)
[2020-12-08] MEDS: ASCORBIC ACID 500 MG TABLET PO SCH (08:27)
[2020-12-08] MEDS: AMLODIPINE 10 MG TAB PO SCH (08:27)
[2020-12-08] MEDS: CHOLECALCIFEROL 5,000u TAB PO SCH (08:28)
[2020-12-08] MEDS: ZINC SULFATE 220 MG CAPSULE PO SCH (08:28)
[2020-12-08] MEDS: LISINOPRIL 20 MG TABLET PO SCH (08:28)
[2020-12-08] MEDS ORDERED: DEXA4VIA39 PO (10:33)
[2020-12-08] MEDS: ENOXAPARIN 40 MG/0.4 ML SQ SCH (11:12)
[2020-12-08 12:06] VITALS: BP 130/74
== END 2020-12-08 15:33 | disposition home health service (06) | DRG 871 ==
LOC: ED 13:30 → EDIP 14:10 → SUATTDRO 14:28 → 4WST 19:59
PROVIDERS: ADMIT Hospitalist; ATTEND Internal Medicine
PROC: XW033E5 Introduction of Remdesivir Anti-infective into Peripheral Vein, Percutaneous Approach, New Technology Group 5 (ICD-10-PCS; principal; 2020-11-19)
DX: A41.89 Other specified sepsis (principal); J12.82 Pneumonia due to coronavirus disease 2019; J96.01 Acute respiratory failure with hypoxia; U07.1 COVID-19; E11.649 Type 2 diabetes mellitus with hypoglycemia without coma; I10 Essential (primary) hypertension; R65.20 Severe sepsis without septic shock; Z82.49 Family history of ischemic heart disease and other diseases of the circulatory system
CPT/HCPCS: 36415; 36600; 71045; 71275; 80048; 80053; 82728; 82803; 82962; 83036; 83605; 83615; 84145; 85025; 85049; 85379; 85384; 85610; 85730; 86140; 87040; 93005; 96365; 96375; G0378; J0696; J1100; J1650; Q9967; J1815; J1940; J7050; U0003